=== PATIENT | female | born 1955 | race Caucasian/White ===

== ENCOUNTER → 2017-02-27 | Outpatient (CLI) | payer BC, OTHER ==
[~2017-02-27] VITALS: Ht 160 cm; Wt 77.1 kg
[~2017-02-27] MED LIST: LISINOPRIL20 MG PO
--- NOTE | ~2017-02-27 | CATHLAB ---
[facility] [address] [place] [address] INVASIVE PROCEDURE REPORT Name: MATTHEW GARCIA Room #: REG [facility] [id number] Admission: 02/27/17 Attend Phys: Enrike Paula, Discharge: Date of : 57 Date of Service: 02/27/17916 Report #: [id number] THIS REPORT FOR: //name// CC: Enrike Paula [facility] PROCEDURE: Left heart coronary angiography. INDICATIONS: Abnormal stress study, shortness of breath. DESCRIPTION OF PROCEDURE: The potential benefits and risks of the procedure were discussed at length with the patient, who understood. Full written and informed consent was obtained. The patient was brought into the catheterization suite where her right groin was prepped and draped in a sterile fashion. She was sedated with intravenous Versed. Then, 1% Xylocaine was used as local anesthetic. A 6-Israeli sheath was placed in the right femoral artery by the modified Seldinger technique. Left heart catheterization was performed with a 6-Israeli angled pigtail catheter. A single plain ventriculogram was performed in the FULTON view. Pullback gradients were measured across the aortic valve. Selective coronary angiography was performed with a 6-Israeli left and right 4 cm Saadia coronary catheter. All diagnostic catheters were removed. Hand injection was performed through the right groin sheath with placement of a Mynx device upon removal of the sheath. The patient remained in excellent condition at the conclusion of the procedure with good right groin hemostasis and intact distal pulses. RESULTS: LEFT HEART HEMODYNAMICS: 1. Left ventricular systolic pressure 140. 2. Left ventricular end-diastolic pressure of 12. 3. Aortic valve, no gradient was present on pullback across the aortic valve. Central aortic pressure of 140/67. ANGIOGRAPHY: LEFT VENTRICULOGRAM: Ventriculography demonstrated normal global and regional left ventricular systolic function. Mitral regurgitation was absent. Ejection fraction was estimated at 65%. SELECTIVE CORONARY ANGIOGRAPHY: 1. Left main was normal. 2. The left anterior descending was a large vessel that extended to the inferior apex. The LAD and its branches were angiographically normal including a large proximal diagonal branch. 3. The circumflex was large and dominant. Circumflex gave rise to a mid vessel first marginal branch that was large and angiographically normal. Distal circumflex was normal. 4. The right coronary was small, nondominant and angiographically normal. [facility] [address] [place] [address] INVASIVE PROCEDURE REPORT Name: MATTHEW GARCIA Room #: REG CL [facility]#: [id number] Admission: 02/27/17 Attend Phys: Enrike Paula, Discharge: Date of : 57 Date of Service: 02/27/17 0917 Report #: [id number] SUMMARY: 1. Normal global and regional left ventricular systolic function. Mitral regurgitation was absent. 2. Normal coronary vasculature. This was a left coronary dominant circulation. <ELECTRONICALLY SIGNED> By: Enrike Paula MD, [facility] 03/02/17 1657 [id number] [id number] Enrike Paula MD, [facility] /nt
[2017-02-27 07:03] VITALS: BP 146/84
[2017-02-27 07:10] LABS: HEMATOCRIT 44.6 % (37.0-47.0); HEMOGLOBIN 15.3 gm/dL (12.0-15.0); MCH 32.3 pg (26.0-34.0); MCHC 34.3 g/dL (28.0-37.0); MCV 94.1 fL (80.0-100.0); RBC 4.74 mil/uL (4.20-5.00); RDW 12.9 % (10.5-14.5)
[2017-02-27 07:17] LABS: CALCIUM 9.1 mg/dL (8.5-10.1); CREATININE 0.7 mg/dL (0.6-1.0); POTASSIUM 3.8 mmol/L (3.5-5.1)
== END | disposition home or self-care (01) ==
LOC: CATH 06:36
PROVIDERS: Internal Medicine
DX: I25.10 Atherosclerotic heart disease of native coronary artery without angina pectoris (principal); I10 Essential (primary) hypertension; Z87.891 Personal history of nicotine dependence